=== PATIENT | female | born 2005 | race Caucasian/White ===

== ENCOUNTER 2024-10-21 08:34 | Emergency (ER) | payer OTHER, SELFPAY ==
[2024-10-21 08:40] VITALS: BP 115/67
--- NOTE | 2024-10-21 09:15 | ED.GENMED ---
History of Present Illness
General
Chief Complaint: Rabies
Source: patient
Exam Limitations: none
Time Seen by Provider: 10/21/24 09:03
History of Present Illness
History of Present Illness:
19-year-old female otherwise healthy presents for third rabies vaccine. She was bit by a monkey in [place] 1 week ago. She received immunoglobulin as well as her first 2 rabies vaccines while in [place]. She is here for her third. She denies
headache fever she notes the wound looks well. No other complaints at this time
Phy Exam
Physical Exam
Physical Exam:
General: Well-appearing female no acute respiratory distress
HEENT normocephalic atraumatic skin: Well-appearing skin no erythema
Course
Orders/Labs/Results
Orders:
Orders
10/21/24 09:14
Rabies Vaccine ([facility])/Pf [Rabavert Rabies Vacc W-Diluent] 2.5 unit IM .ONCE ONE
Vital Signs
Initial and Last Documented VS:
Initial Vital Signs
Temp Pulse Resp BP Pulse Ox
98 F 65 16 115/67 98
10/21/24 08:40 10/21/24 08:40 10/21/24 08:40 10/21/24 08:40 10/21/24 08:40
Last Documented Vital Signs
Temp Pulse Resp BP Pulse Ox
98 F 65 16 115/67 98
10/21/24 08:40 10/21/24 08:40 10/21/24 08:40 10/21/24 08:40 10/21/24 08:40
MDM/Problems Addressed
Differential Diagnosis Includes:
Patient here for her third rabies vaccine she [place] first 2 [place]. I personally visualized documentation of these vaccines as well as immunoglobulin. She will receive her third vaccine here today and will be sent to the
infusion center in 1 week for fourth and final vaccine
*Critical Care Note
Total Time (30-74mins, 75-104mins- exclusive of procedures): Not Applicable
ED Attending Note
-
Portions of this chart may have been created with voice recognition software.� Occasional wrong word or��sound alike� substitutions may have occurred due to the inherent limitations of voice recognition software.
Discharge Plan
Departure
Patient Disposition: Home (Routine Discharge)
Date of Disposition: 10/21/24
Time of Disposition: 09:16
Patient with high blood pressure during this ER visit?: No
Discharge Problem:
Rabies, need for prophylactic vaccination against
Prescriptions:
New
RabAvert (PF) 2.5 unit Suspension For Reconstitution
1 ml IM . DIRECTED Qty: 1 0RF
Rx Instructions:
See Rabies Vaccine Post Exposure Prophylaxis Instruction Sheet for Dosing Instructions
Stand Alone Forms: Rabies Vaccine Post Exp Dosing
Activity Restrictions/Additional Instructions:
Please follow-up at the infusion center for the fourth and final vaccine next week.
Interventions
Interventions:
*Risk Screen - Suicide Last Done: 10/21/24 08:40
*General Assessment Last Done: 10/21/24 08:40
*Neglect/Abuse Screening Last Done: 10/21/24 08:40
Discharge Date and Time
Print Language: LATVIAN
[2024-10-21] MEDS: RABAVERT RABIES VACC W-DILUENT 2.5 UNIT IM (09:36)
== END 2024-10-21 09:51 | disposition home or self-care (01) ==
LOC: EMR 08:34
PROVIDERS: EMERGENCY PHYSICIAN Emergency Medicine
DX: Z20.3 Contact with and (suspected) exposure to rabies (principal); Z23 Encounter for immunization
CPT/HCPCS: 90471; 99281; 90675

== ENCOUNTER 2024-10-28 14:28 | Outpatient (RCR) | payer OTHER, SELFPAY ==
[2024-10-28 14:44] VITALS: BP 139/65
[2024-10-28] MEDS: RABAVERT RABIES VACC W-DILUENT 2.5 UNIT IM (14:54)
== END 2024-10-29 10:53 | disposition home or self-care (01) ==
LOC: OID 14:28
PROVIDERS: ATTENDING PHYSICIAN Emergency Medicine
DX: Z20.3 Contact with and (suspected) exposure to rabies (principal); Z23 Encounter for immunization
CPT/HCPCS: 90471; 90675

== ENCOUNTER 2025-06-29 06:06 | Day surgery (SDC) | payer SELFPAY ==
[2025-06-29 08:40] VITALS: BP 112/64
[2025-06-29 08:45] VITALS: BMI 24.9
[2025-06-29] MEDS: NORMOSOL-R/PLASMALYTE-A 1000 IV (08:45)
[2025-06-29 09:00] VITALS: BMI 24.9
[2025-06-29 09:01] LABS: Hematocrit 33.7 % (37.0-47.0); Hemoglobin 11.9 g/dL (12.0-16.0)
--- NOTE | 2025-06-29 10:00 | W.PN.UPDATE ---
Update Note
Progress Note Update
I came over to meet the patient in [facility] pre-op. Pt reporting that she passed the fetus early this AM, now has moderate bldg. Does no describe anything that sounds 100% like placenta. Pt with little pain.
Fetus sent to path.
[facility] ordered to evaluate for retained POC, per [facility] tech, lining is measuring 2.3 cm, with complex area measuring 4.8 cm.
Therefore appears to be retained POC, and pt advised she will need D&E as scheduled.
[2025-06-29] MEDS: VIBRAMYCIN 270 MG IV (10:15)
[2025-06-29] MEDS: TYLENOL 1000 MG PO (10:17)
[2025-06-29 11:15] VITALS: BP 107/70
[2025-06-29 11:30] VITALS: BP 110/70
[2025-06-29 11:45] VITALS: BP 124/70
[2025-06-29 12:00] VITALS: BP 124/78
[2025-06-29 13:00] VITALS: BP 123/64
== END 2025-06-29 13:18 | disposition home or self-care (01) ==
LOC: SDS 06:06
PROVIDERS: ATTENDING PHYSICIAN Obstetrics & Gynecology
DX: O03.4 Incomplete spontaneous abortion without complication (principal); Z3A.09 9 weeks gestation of pregnancy
CPT/HCPCS: 59812; 76801; 76817; 76998; 85014; 85018; 86850; 86900; 86901; 88305